=== PATIENT | female | born 1990 | race Two or more races ===

== ENCOUNTER 2017-04-02 09:04 | Emergency (ER) | payer OTHER ==
[2017-04-02 09:14] VITALS: BP 123/63; PULSE 79; TEMP 98.1; BMI 24.4
--- NOTE | 2017-04-02 10:18 | PDOC ---
History of Present Illness - General Chief Complaint: Injury Stated Complaint: INJURY/ANKLE PAIN Time Seen by Provider: 04/02/17 09:48 History Source: Patient, Family Exam Limitations: No Limitations - History of Present Illness Initial Comments: 04/02/17 10:15 Tripped and fell hyperflexing right foot last night. States elevated and use ice packs, but had continued pain. Primarily midfoot, no other injury. Patient is 5 months Occurred: reports: yesterday Pain Location: reports: lower extremity (right foot) Method of Injury: Yes: fall Loss of Consciousness: no loss of consciousness Associated Symptoms (Fall): denies symptoms Past History - Travel Traveled outside of the country in the last 30 days: No Close contact w/someone who was outside of country & ill: No - Past Medical History Allergies/Adverse Reactions: Allergies Allergy/AdvReac Type Severity Reaction Status Date / Time No Known Allergies Allergy Verified 04/02/17 09:14 Home Medications: Ambulatory Orders Vit/Iron Fumarate/FA [ Tablet] 1 each PO DAILY 04/18/15 Asthma: No Cancer: No Cardiac Disorders: No COPD: No Diabetes: No HTN: No Seizures: No Thyroid Disease: No - Suicide/Smoking/Psychosocial Hx Smoking History: Never smoked Have you smoked in the past 12 months: No Information on smoking cessation initiated: No Hx Alcohol Use: No Drug/Substance Use Hx: No Substance Use Type: None Hx Substance Use Treatment: No Review of Systems - Review of Systems Able to Perform ROS?: Yes Is the patient limited [place] Islander proficient: Yes Constitutional: Yes: See HPI. No: Symptoms Reported HEENTM: No: Symptoms Reported Musculoskeletal: Yes: Symptoms Reported, See HPI, Joint Pain, Joint Swelling ( primarily lateral aspect of right dorsum of foot,) *Physical Exam - Vital Signs Last Vital Signs Temp Pulse Resp BP Pulse Ox 98.1 F 79 18 123/63 99 04/02/17 09:10 04/02/17 09:10 04/02/17 09:10 04/02/17 09:10 04/02/17 09:10 - Physical Exam General Appearance: Yes: Nourished, Appropriately Dressed, Apparent Distress, Mild Distress HEENT: positive: EARL, Normal ENT Inspection, TMs Normal, Pharynx Normal Neck: positive: Supple. negative: Lymphadenopathy (R), Lymphadenopathy (L) Respiratory/Chest: positive: Lungs Clear Extremity: positive: Normal Capillary Refill, Tender (has no true Point tenderness to lateral or medial malleolus, no navicular pain, negative squeeze test. Has some mild tenderness to the dorsum of right midfoot at fifth metatarsal however has minimal deformity. Full range of motion at toes and neurovascular intact.) Integumentary: positive: Normal Color, Swelling. 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 Is 5 months therefore will follow-up *DC/Admit/Observation/Transfer Diagnosis at time of Disposition: Right ankle sprain Qualifiers: Encounter type: initial encounter Involved ligament of ankle: unspecified ligament Qualified Code(s): S93.401A - Sprain of unspecified ligament of right ankle, initial encounter - Discharge Dispostion Disposition: HOME Condition at time of disposition: Stable Admit: No - Referrals Referrals: Claude Freed MD [Staff Physician] - - Patient Instructions Printed Discharge Instructions: DI for Ankle Sprain Additional Instructions: Rest, ice to area on and off for 15 minutes 4-6 times a day Avoid heavy lifting or exercise until pain and swelling is resolved or until further directed Keep area highly elevated to reduce swelling Use splints/Ger wrap as directed Followup with orthopedist in one to 2 days if not improving, if significantly improved may wait one week for followup with orthopedist May use Tylenol-2- 325mg tabs every 6 hours as needed for pain - Post Discharge Activity Forms/Work/School Notes: Parent(s) Back to Work Note, Back to Work
== END 2017-04-02 10:24 | disposition home or self-care (01) ==
LOC: JERFT 09:04
DX: O99.89 Other specified diseases and conditions complicating pregnancy, childbirth and the puerperium (principal); S93.401A Sprain of unspecified ligament of right ankle, initial encounter; W18.39XA Other fall on same level, initial encounter; Y93.89 Activity, other specified; Y92.89 Other specified places as the place of occurrence of the external cause; Z3A.20 20 weeks gestation of pregnancy
CPT/HCPCS: 99281-25

== ENCOUNTER 2017-07-24 15:00 | Emergency (ER) | payer OTHER ==
--- NOTE | 2017-07-24 15:04 | PDOC ---
Rapid Medical Evaluation Time Seen by Provider: 07/24/17 15:02 Medical Evaluation: Allergies Allergy/AdvReac Type Severity Reaction Status Date / Time No Known Allergies Allergy Verified 04/02/17 09:14 07/24/17 15:02 I have performed a brief in-person evaluation of this patient. The patient presents with a chief complaint of: 36 weeks , twisted L ankle, denies abd pain/cramping Pertinent physical exam findings: well appearing I have ordered the following: left ankle/foot x-ray The patient will proceed to the ED for further evaluation. Discharge Disposition - Diagnosis Left ankle pain - Referrals - Patient Instructions - Post Discharge Activity
[2017-07-24 15:06] VITALS: BMI 25.4
--- NOTE | 2017-07-24 15:30 | PDOC ---
History of Present Illness - General Chief Complaint: Injury Stated Complaint: FALL (36 WEEKS ),ANKLE PAIN Time Seen by Provider: 07/24/17 15:02 History Source: Patient Exam Limitations: No Limitations - History of Present Illness Initial Comments: 07/24/17 15:28 CHIEF COMPLAINT:Left ankle injury HISTORY OF PRESENT ILLNESS: Patient is a 27-year-old female currently 36 weeks , reports today was walking down the stairs and has been having episodes of dizziness, she twisted her left ankle while walking down the stairs denies hitting her belly. States she felt her buttock. Pain only now to left lateral ankle with edema. No bruising. No deformity. Patient was seen after the incident at her [facility] is aware of her spells of dizziness, center to the emergency department to evaluate ankle and requested for patient to be sent to labor and delivery for evaluation after treatment. Patient is ambulatory with pain to lateral ankle. Does have movement, no vaginal bleeding or discharge, no abdominal trauma.. Occurred: reports: just prior to arrival Severity: Yes: moderate Lower Extremity Pain Location: right: ankle Method of Injury: Yes: twisted Lower Ext. Injury Location - Specific Injury Location Ankle: right pain, right swelling Extremity Pain Location - Extremity Pain Location Extremity Pain Locations: right: ankle Past History - Past Medical History Allergies/Adverse Reactions: Allergies Allergy/AdvReac Type Severity Reaction Status Date / Time No Known Allergies Allergy Verified 07/24/17 15:06 Home Medications: Ambulatory Orders Vit/Iron Fum/Folic AC [ Tablet] 1 each PO DAILY 04/18/15 Asthma: No Cancer: No Cardiac Disorders: No COPD: No Diabetes: No HTN: No Seizures: No Thyroid Disease: No - Immunization History Immunization Up to Date: No - Suicide/Smoking/Psychosocial Hx Smoking History: Never smoked Have you smoked in the past 12 months: No Information on smoking cessation initiated: No Hx Alcohol Use: No Drug/Substance Use Hx: No Substance Use Type: None Hx Substance Use Treatment: No Review of Systems - Review of Systems Constitutional: No: Symptoms Reported HEENTM: No: Symptoms Reported Respiratory: No: Symptoms reported Cardiac (ROS): No: Symptoms Reported ABD/GI: No: Symptoms Reported : No: Symptoms Reported Musculoskeletal: Yes: Joint Pain, Joint Swelling. No: Muscle Pain, Muscle Weakness, Neck Pain, Joint Stiffness Integumentary: No: Symptoms Reported, Bruising, Erythema Neurological: No: Paresthesia, Tingling, Tremors Hematologic/Lymphatic: No: Symptoms Reported All Other Systems: Reviewed and Negative *Physical Exam - Vital Signs Last Vital Signs Temp Pulse Resp BP Pulse Ox 98.1 F 79 19 116/66 100 07/24/17 15:03 07/24/17 15:03 07/24/17 15:03 07/24/17 15:03 07/24/17 15:03 - Physical Exam General Appearance: Yes: Appropriately Dressed. No: Apparent Distress Extremity: positive: Normal Capillary Refill, Normal Inspection, Swelling. negative: Normal Range of Motion (left ankle related to pain. ), Erythema, Inflammation Integumentary: positive: Normal Color, Dry, Swelling (left lateral ankle). negative: Erythema, Ecchymosis, Bruising Neurologic: positive: Alert, Normal Mood/Affect, Normal Response, Motor Strength 5/5 Medical Decision Making - Medical Decision Making 07/25/17 11:46 A/P: Patient with injury to left lateral ankle, patient effort x-ray however she is 36 weeks , made aware of radiation exposure and complications. She verbalized understanding and has requested to double led cover her belly. She was covered with let appropriately, x-ray demonstrates no acute fracture dislocation Ger wrap and Aircast placed on for stability. Crutches given for steady ambulation. After being cleared from emergency department patient sent to labor and delivery for clearance. Patient transferred via wheelchair, stable for transfer. 07/25/17 11:47 *DC/Admit/Observation/Transfer Diagnosis at time of Disposition: Left ankle pain Qualifiers: Chronicity: acute Qualified Code(s): M25.572 - Pain in left ankle and joints of left foot - Discharge Dispostion Disposition: HOME Condition at time of disposition: Stable Admit: No - Referrals Referrals: Fatimah Romero MD [Staff Physician] - - Patient Instructions Additional Instructions: Ice and elevate when at rest, Tylenol for pain, if pain persists in 1 week follow-up with orthopedics go immediately to labor and delivery upon discharge today. DISCHARGE TO HOME. FOLLOW-UP IN [facility] NEXT WEEK, CALL TOMORROW TO MAKE APPOINTMENT. RETURN TO THE HOSPITAL OF ANY OF THE FOLLOWING OCCUR: VAGINAL BLEEDING, YOUR WATER BREAKS, YOU HAVE REGULAR CONTRACTIONS OR YOU DO NOT FEEL YOUR BABY MOVE. MAKE SURE TO STAY HYDRATED WITH 8-10 GLASSES OF WATER PER DAY. CALL THE HOSPITAL WITH ANY QUESTIONS: [phone]. - Post Discharge Activity
[2017-07-24 17:36] VITALS: BP 129/71; PULSE 82; TEMP 97.9
== END 2017-07-24 18:04 | disposition home or self-care (01) ==
LOC: JERFT 15:00
DX: O99.89 Other specified diseases and conditions complicating pregnancy, childbirth and the puerperium (principal); M25.572 Pain in left ankle and joints of left foot; W10.8XXA Fall (on) (from) other stairs and steps, initial encounter; Y93.89 Activity, other specified; Y92.89 Other specified places as the place of occurrence of the external cause; Z3A.36 36 weeks gestation of pregnancy
CPT/HCPCS: 73610-TC-LT-FY; 73630-TC-LT; 99281-25

== ENCOUNTER 2017-08-14 07:10 | Inpatient (IN) | payer OTHER ==
[2017-08-14] MEDS ORDERED: ELECTROLYTE-148 SOLN 1,000 ML IV ONE (07:50)
[2017-08-14] MEDS ORDERED: CITRIC ACID/SODIUM CITRATE 30 ML UNIT-DOSE CUP PO ONE (08:03)
[2017-08-14 08:08] VITALS: BMI 26.3
[2017-08-14] MEDS ORDERED: ELECTROLYTE-148 SOLN 1,000 ML IV SCH (08:15)
--- NOTE | 2017-08-14 11:28 | HP ---
Past Medical History - Primary Care Physician PCP:: Jostin Harrison - Admission Chief Complaint: 39 weeks, previous c/s, for repeat c/s History of Present Illness: 27 yo g 2 p1001 edc by sono 08/19/17 with hx of previous c/s, requesting repeat c/ s, discussed , cx clp, vx -3, fhr cat 1 History Source: Patient Limitations to Obtaining History: No Limitations - Past Medical History ...: 2 ...Para: 1 ...Term: 1 ... Weeks Gestation by Dates: 39.2 ...EDC by Sono: 08/19/17 - Past Surgical History Past Surgical History: Yes: Hx Myomectomy: No Hx Transabdominal Cerclage: No - Smoking History Smoking history: Never smoked Have you smoked in the past 12 months: No - Alcohol/Substance Use Hx Alcohol Use: No - Social History Usual Living Arrangement: Yes: With Spouse History of Recent Travel: No Home Medications - Allergies Allergies/Adverse Reactions: Allergies Allergy/AdvReac Type Severity Reaction Status Date / Time No Known Allergies Allergy Verified 08/14/17 07:58 - Home Medications Home Medications: Ambulatory Orders Vit/Iron Fum/Folic AC [ Tablet] 1 each PO DAILY 04/18/15 Review of Systems - Review of Systems Constitutional: reports: No Symptoms Eyes: reports: No Symptoms HENT: reports: No Symptoms Neck: reports: No Symptoms Cardiovascular: reports: No Symptoms Respiratory: reports: No Symptoms Gastrointestinal: reports: No Symptoms Genitourinary: reports: No Symptoms Breasts: reports: No Symptoms Reported Musculoskeletal: reports: No Symptoms Integumentary: reports: No Symptoms Neurological: reports: No Symptoms Endocrine: reports: No Symptoms Hematology/Lymphatic: reports: No Symptoms Physical Exam - Maternity Vital Signs: Vital Signs Temperature 98.4 F 08/14/17 07:30 Pulse Rate 80 08/14/17 07:30 Respiratory Rate 18 08/14/17 07:30 Blood Pressure 129/75 08/14/17 07:30 O2 Sat by Pulse Oximetry (%) - Abdominal Exam/OB Fundal Height: 40 Number of Fetuses: Single Presentation: Vertex Regularity: Irritability Intensity: Unaware Heart Rate Location: [facility] Category: I Accelerations: Uniform Decelerations: None - Vaginal Exam/OB Vaginal Bleediing: No Speculum Exam: No Dilatation (cm): closed Effacement (%): 0 Amniotic Membrane Status: Intact Presentation: Vertex/Position Station: -3 - Physical Exam Musculoskeletal: Yes: WNL Edema: Yes Edema: LLE: Trace, RLE: Trace Deep Tendon Reflex Grade: Normal +2 Psychiatric: Yes: WNL Hemorrhage Risk Assessment - Risk Factors Medium Risk Factors: Yes: Prior , uterine surgery,or multiple laparotomies Risk Score: 1 Risk Level: Medium Risk Problem List - Problems (1) with 39 completed weeks gestation Code(s): Z3A.39 - 39 WEEKS GESTATION OF (2) Previous section complicating Code(s): O34.219 - MATERNAL CARE FOR UNSP TYPE SCAR FROM PREVIOUS DEL Assessment/Plan repeat c/s, rba discussed
[2017-08-14] MEDS ORDERED: morphine SULFATE/Preservative Free 0.5 MG/ML (1cc Syringe) ONE (11:50)
[2017-08-14] MEDS ORDERED: BUPIVACAINE 0.75% IN DEXTROSE/PF 2ML AMPULE NR ONE (11:50)
[2017-08-14] MEDS ORDERED: morphine SULFATE/Preservative Free 0.5 MG/ML (1cc Syringe) SPIN ONE (12:02)
[2017-08-14] MEDS ORDERED: ceFAZolin SODIUM 1 GM VIAL ONE (12:04)
[2017-08-14] MEDS ORDERED: ePHEDrine SULFATE 50 MG/1 ML AMPULE ONE (12:06)
[2017-08-14] MEDS ORDERED: OXYTOCIN 10 UNITS/ML VIAL ONE ×2 (12:12→12:13)
[2017-08-14] MEDS ORDERED: ONDANSETRON 4 MG/2 ML VIAL IVPUSH PRN (12:18)
[2017-08-14] MEDS ORDERED: WITCH HAZEL 50% (TUCKS) 40 PAD/JAR PAD TP PRN (12:40)
[2017-08-14] MEDS ORDERED: diphenhydrAMINE HCL 25 MG CAPSULE (FP) PO PRN (12:40)
[2017-08-14] MEDS ORDERED: METHYLERGONOVINE MALEATE 0.2 MG/1 ML AMP IM PRN (12:40)
[2017-08-14] MEDS ORDERED: BENZOCAINE 28 GM HEMORRHOIDAL OINTMENT PR PRN (12:40)
[2017-08-14] MEDS ORDERED: IBUPROFEN 600 MG TABLET (FP) PO PRN (12:40)
[2017-08-14] MEDS ORDERED: IBUPROFEN 800 MG/8 ML IJ IVPB PRN (12:40)
[2017-08-14] MEDS ORDERED: BENZOCAINE 20% 57 GM BOTTLE TP PRN (12:40)
[2017-08-14] MEDS ORDERED: OXYTOCIN 20 UNITS in 0.9% NS 20 UNIT/1,000 ML INFUS.BAG IV SCH (12:45)
[2017-08-14] MEDS ORDERED: DEXTROSE 5%-LACTATED RINGERS 1,000 ML IV SCH (12:45)
--- NOTE | 2017-08-14 13:43 | OP ---
DATE OF OPERATION: 08/14/2017 PREOPERATIVE DIAGNOSIS: 39 weeks, previous section, request repeat section. POSTOPERATIVE DIAGNOSIS: 39 weeks, previous section, request repeat section. PROCEDURE: Repeat low segment transverse section. SURGEON: Jostin Harrison MD RN REHABILITATION: BHARGAV Nance ANESTHESIA: Spinal. ANESTHESIOLOGIST: Dr. Andres Jordan ESTIMATED BLOOD LOSS: 500 mL. FINDINGS: A live baby boy, Apgars 9/9, ROT position. DESCRIPTION OF PROCEDURE: The patient was taken to the operating room under adequate spinal anesthesia. Abdomen and perineum were prepped and draped. Pfannenstiel abdominal skin incision was made over the previous incision. Abdominal wall was cut layer by layer until the peritoneum was exposed and incised. Upon entering the abdominal cavity, lower uterine segment was identified and uterovesical fold of peritoneum established. Bladder was pushed down. Then with the lower blade of the Jackie retractor in the pelvis, a low transverse uterine incision was made. Incision extended laterally. Amniotic sac was entered. Clear fluid. Head delivered from right occiput posterior position. Cord around the neck x1 reduced. Nasopharynx was suctioned, and live baby boy was delivered without any difficulty. Placenta was delivered manually. Uterine cavity was cleaned of all remaining tissue. Uterine incision was closed in 2 layers, the first layer with 0 Biosyn continuous suture, the second layer with 0 Biosyn imbricating the first layer. Bladder flap was closed with 0 Biosyn continuous suture. Both tubes and ovaries were checked and normal. No active bleeding was seen. All of the lap pad, sponge, and instrument counts were correct. Peritoneum was closed with 0 Biosyn continuous suture. Muscles were brought together with interrupted sutures of 0 Biosyn. Fascia was closed with 0 Biosyn continuous suture, subcutaneous fat interrupted suture of 0 Biosyn, and the skin was closed with reese. The patient tolerated the procedure well and left the OR in good condition. Bc [id number]
[2017-08-14] MEDS: CEFAZOLIN 1 GM/D5W 1 GM/50 ML BAG IVPB SCH (18:01)
[2017-08-15] MEDS: CEFAZOLIN 1 GM/D5W 1 GM/50 ML BAG IVPB SCH (02:00)
[2017-08-15 08:21] LABS: BASO % 0.2 % (0-2.0); EOS % 0.3 % (0-4.5); HEMATOCRIT 28.8 % (32.4-45.2); HEMOGLOBIN 9.5 GM/dL (10.7-15.3); LYMPH % 12.8 % (8-40); MCH 28.3 pg (25.7-33.7); MEAN CELL VOLUME 85.9 fl (80-96); MEAN PLT VOLUME 8.4 fl (7.5-11.1); MONO % 8.2 % (3.8-10.2); NEUT % 78.5 % (42.8-82.8); PLATELET COUNT 191 K/MM3 (134-434); RBC 3.36 M/mm3 (3.60-5.2); RDW 14.8 % (11.6-15.6); WHITE BLOOD COUNT 7.7 K/mm3 (4.0-10.0)
[2017-08-15] MEDS: oxyCODONE HCL 5 MG TABLET PO PRN ×3 (09:28→22:01)
[2017-08-15] MEDS: ACETAMINOPHEN 325 MG TABLET (FP) PO PRN (09:30)
[2017-08-15] MEDS: SIMETHICONE 80 MG TAB.CHEW (FP) PO PRN ×3 (09:31→22:01)
[2017-08-15] MEDS: ENOXAPARIN NA (PORCINE) 40 MG/0.4 ML DISP.SYRIN SQ SCH (09:31)
--- NOTE | 2017-08-15 10:58 | PN ---
Post Progress Note - Subjective Subjective: c/o pain scale 5-6. voided after paul is taken out Post Day: 1 Type of Delivery: Repeat C/S Vital Signs: Vital Signs Temperature 98.8 F 08/15/17 07:10 Pulse Rate 73 08/15/17 07:10 Respiratory Rate 20 08/15/17 07:10 Blood Pressure 103/61 08/15/17 07:10 O2 Sat by Pulse Oximetry (%) 100 08/14/17 13:35 Breast Exam: Yes: Soft, Other (BF). No: Engorged Uterus: Yes: Fundus Firm, Fundus below umbilicus, Non-tender Incision: Yes: Dressing dry and intact. No: Redness, Oozing Abdomen/GI: Yes: Abdomen soft (bs active), Tender, Tolerating PO (fluids). No: Abdominal Distention, Passing flatus Lochia: Yes: Rubra Lochia, amount: Moderate Extremities: Yes: Calves non-tender Perineum: Yes: Intact Activity: Ambulating, Other (oob in chair) - Labs Labs: CBC WBC 7.7 K/mm3 (4.0-10.0) D 08/15/17 07:30 RBC 3.36 M/mm3 (3.60-5.2) L 08/15/17 07:30 Hgb 9.5 GM/dL (10.7-15.3) L D 08/15/17 07:30 Hct 28.8 % (32.4-45.2) L 08/15/17 07:30 MCV 85.9 fl (80-96) 08/15/17 07:30 MCH 28.3 pg (25.7-33.7) 08/15/17 07:30 MCHC 33.0 g/dl (32.0-36.0) 08/15/17 07:30 RDW 14.8 % (11.6-15.6) 08/15/17 07:30 Plt Count 191 K/MM3 (134-434) 08/15/17 07:30 MPV 8.4 fl (7.5-11.1) 08/15/17 07:30 Neutrophils % 78.5 % (42.8-82.8) 08/15/17 07:30 Lymphocytes % 12.8 % (8-40) D 08/15/17 07:30 Monocytes % 8.2 % (3.8-10.2) 08/15/17 07:30 Eosinophils % 0.3 % (0-4.5) 08/15/17 07:30 Basophils % 0.2 % (0-2.0) 08/15/17 07:30 Other Findings, Remarks: rs cta i/o adequate Assessment/Plan stable. plan : ct po care encourage ambulation, po fluids , deep breathing
[2017-08-15] MEDS ORDERED: BISACODYL 10 MG SUPP.RECT RC PRN (12:40)
--- NOTE | 2017-08-15 13:56 | PN ---
Progress Note, Physician Chief Complaint: POD #1 s/p c/s - Current Medication List Current Medications: Active Medications Acetaminophen (Tylenol -) 650 mg PO Q4H PRN PRN Reason: PAIN Last Admin: 08/15/17 09:30 Dose: 650 mg Benzocaine (Americaine 20% Davis -) 1 spray TP PRN PRN PRN Reason: Pain - Topical Benzocaine (Americaine Ointment -) 1 applic OK PRN PRN PRN Reason: Pain - Topical Bisacodyl (Dulcolax Suppository -) 10 mg RC PRN PRN PRN Reason: CONSTIPATION Diphenhydramine HCl (Benadryl Injection -) 25 mg IVPUSH Q4H PRN PRN Reason: Pruritis Last Admin: 08/14/17 13:50 Dose: 25 mg Diphenhydramine HCl (Benadryl -) 25 mg PO Q8H PRN PRN Reason: FOR ITCHING Enoxaparin Sodium (Lovenox -) 40 mg SQ DAILY JOSE RAUL Last Admin: 08/15/17 09:31 Dose: 40 mg Parenteral Electrolytes (Plasma-Lyte 148 -) 1,000 mls @ 125 mls/hr IV ASDIR JOSE RAUL Last Admin: 08/14/17 08:30 Dose: 125 mls/hr Cefazolin Sodium (Ancef 1 Gm Premixed Ivpb -) 1 gm in 50 mls @ 100 mls/hr IVPB Q8H-IV JOSE RAUL Stop: 08/15/17 02:29 Last Admin: 08/15/17 02:00 Dose: 100 mls/hr Dextrose/Lactated Ringer's (D5-Lr -) 1,000 mls @ 125 mls/hr IV ASDIR JOSE RAUL Oxytocin/Sodium Chloride (Normal Saline+20 Units Oxytocin -) 20 unit in 1,000 mls @ 125 mls/hr IV ASDIR JOSE RAUL Ibuprofen (Motrin -) 600 mg PO Q4H PRN PRN Reason: PAIN LEVEL 1-5 Ibuprofen (Caldolor Injection -) 800 mg IVPB Q6H PRN PRN Reason: PAIN > 5 if PO not effective. Last Admin: 08/15/17 00:12 Dose: 800 mg Methylergonovine Maleate (Methergine Injection -) 0.2 mg IM Q4H PRN PRN Reason: EXCESSIVE BLEEDING Ondansetron HCl (Zofran Injection) 4 mg IVPUSH Q4H PRN PRN Reason: NAUSEA Last Admin: 08/14/17 17:15 Dose: 4 mg Oxycodone HCl (Roxicodone -) 5 mg PO Q4H PRN PRN Reason: PAIN LEVEL 4 - 6 Last Admin: 08/15/17 09:28 Dose: 5 mg Oxycodone HCl (Roxicodone -) 10 mg PO Q4H PRN PRN Reason: PAIN LEVEL 7 - 10 Senna/Docusate Sodium (Pericolace -) 2 tablet PO HS PRN PRN Reason: CONSTIPATION Simethicone (Mylicon -) 80 mg PO Q4H PRN PRN Reason: GAS Last Admin: 08/15/17 09:31 Dose: 80 mg Witch Elsa/Glycerin (Tucks Pads -) 1 pad TP PRN PRN PRN Reason: Pain - Topical - Objective Vital Signs: Vital Signs Temperature 98.8 F 08/15/17 07:10 Pulse Rate 73 08/15/17 07:10 Respiratory Rate 20 08/15/17 07:10 Blood Pressure 103/61 08/15/17 07:10 O2 Sat by Pulse Oximetry (%) 100 08/14/17 13:35 Labs: CBC, BMP 08/15/17 07:30 Assessment/Plan Pt has incisional pain but able to ambulate, do daily activities etc. Encouraged to take PO percocet for better pain control (she was reluctant intially)
[2017-08-15] MEDS: IBUPROFEN 600 MG TABLET (FP) PO PRN ×2 (16:13→22:02)
--- NOTE | 2017-08-16 02:27 | PN ---
Post Progress Note - Subjective Subjective: 27 yo Para 2 status post repeat , seen and evaluated. Doing well. Post Day: 2 Type of Delivery: Repeat C/S Vital Signs: Vital Signs Temperature 98.1 F 08/15/17 21:36 Pulse Rate 76 08/15/17 21:36 Respiratory Rate 18 08/15/17 21:36 Blood Pressure 112/57 08/15/17 21:36 O2 Sat by Pulse Oximetry (%) 100 08/14/17 13:35 Breast Exam: Yes: Soft Uterus: Yes: Fundus Firm Incision: Yes: Dressing dry and intact Abdomen/GI: Yes: Abdomen soft, Tolerating PO Lochia: Yes: Rubra Lochia, amount: Small Extremities: Yes: Calves non-tender Activity: Ambulating - Labs Labs: CBC WBC 7.7 K/mm3 (4.0-10.0) D 08/15/17 07:30 RBC 3.36 M/mm3 (3.60-5.2) L 08/15/17 07:30 Hgb 9.5 GM/dL (10.7-15.3) L D 08/15/17 07:30 Hct 28.8 % (32.4-45.2) L 08/15/17 07:30 MCV 85.9 fl (80-96) 08/15/17 07:30 MCH 28.3 pg (25.7-33.7) 08/15/17 07:30 MCHC 33.0 g/dl (32.0-36.0) 08/15/17 07:30 RDW 14.8 % (11.6-15.6) 08/15/17 07:30 Plt Count 191 K/MM3 (134-434) 08/15/17 07:30 MPV 8.4 fl (7.5-11.1) 08/15/17 07:30 Neutrophils % 78.5 % (42.8-82.8) 08/15/17 07:30 Lymphocytes % 12.8 % (8-40) D 08/15/17 07:30 Monocytes % 8.2 % (3.8-10.2) 08/15/17 07:30 Eosinophils % 0.3 % (0-4.5) 08/15/17 07:30 Basophils % 0.2 % (0-2.0) 08/15/17 07:30 Problem List - Problems (1) Status post repeat low transverse section Code(s): Z98.891 - HISTORY OF UTERINE SCAR FROM PREVIOUS SURGERY Assessment/Plan Status post repeat Low transverse Ambulation Analgesia as needed Continue routine post op care
[2017-08-16] MEDS: ENOXAPARIN NA (PORCINE) 40 MG/0.4 ML DISP.SYRIN SQ SCH (09:04)
[2017-08-16] MEDS: oxyCODONE HCL 5 MG TABLET PO PRN ×2 (09:05→20:49)
[2017-08-16] MEDS: SIMETHICONE 80 MG TAB.CHEW (FP) PO PRN ×2 (09:05→18:31)
[2017-08-16] MEDS: IBUPROFEN 600 MG TABLET (FP) PO PRN ×2 (09:06→18:31)
[2017-08-16] MEDS: ACETAMINOPHEN 325 MG TABLET (FP) PO PRN ×2 (09:07→18:30)
[2017-08-16] MEDS: SENNOSIDES/DOCUSATE COMBO (SENNA PLUS) TABLET (UD) PO PRN (20:49)
[2017-08-17] MEDS: IBUPROFEN 600 MG TABLET (FP) PO PRN ×3 (02:27→22:32)
[2017-08-17] MEDS: oxyCODONE HCL 5 MG TABLET PO PRN (02:27)
[2017-08-17] MEDS: SIMETHICONE 80 MG TAB.CHEW (FP) PO PRN ×3 (02:27→22:31)
[2017-08-17 07:47] LABS: BASO % 0.6 % (0-2.0); EOS % 2.7 % (0-4.5); HEMATOCRIT 27.6 % (32.4-45.2); HEMOGLOBIN 9.1 GM/dL (10.7-15.3); LYMPH % 31.1 % (8-40); MCH 28.3 pg (25.7-33.7); MCHC 32.9 g/dl (32.0-36.0); MEAN CELL VOLUME 85.9 fl (80-96); MEAN PLT VOLUME 8.6 fl (7.5-11.1); MONO % 10.5 % (3.8-10.2); NEUT % 55.1 % (42.8-82.8); PLATELET COUNT 228 K/MM3 (134-434); RBC 3.21 M/mm3 (3.60-5.2); RDW 15.2 % (11.6-15.6); WHITE BLOOD COUNT 6.4 K/mm3 (4.0-10.0)
[2017-08-17] MEDS: ENOXAPARIN NA (PORCINE) 40 MG/0.4 ML DISP.SYRIN SQ SCH (09:18)
[2017-08-17] MEDS: ACETAMINOPHEN 325 MG TABLET (FP) PO PRN ×2 (16:56→22:31)
--- NOTE | 2017-08-17 17:05 | PATH ---
Surgical Pathology Report Patient Name: MASOOD RUSS Med. Rec. #: [id number] /Age/Gender: 1990 (Age: 27) / F Account: [id number] Location: [facility] OBS/SAMPLE MAKER HAND Taken: 08/14/2017 Received: 08/15/2017 Reported: 08/17/2017 Physicians: Jostin Harrison M.D. Specimen(s) Received PLACENTA Clinical History , 39.2 weeks Final Diagnosis PLACENTA: MATURE THIRD TRIMESTER PLACENTA. THREE-VESSEL CORD. MEMBRANES, NO DIAGNOSTIC ABNORMALITIES. Electronically Signed Ladonna Zavala M.D. Gross Description The specimen is received fresh labeled placenta and is a 542 gram, 18.0 x 16.0 x 2.7 cm. placenta with attached membranes and umbilical cord. The attached membranes are moreira, translucent with focal opacities and insert marginally. The umbilical cord measures 52 cm. in length and averages 1.0 cm. in diameter. The cord inserts eccentrically, 5 cm. to the nearest margin. No true knots or strictures are identified. Cut surface of the umbilical cord reveals 3 vessels. The surface is becker-blue with minimal fibrin deposition and appropriate caliber vessels. The maternal surface is red-brown with focal defects. Sectioning reveals red-brown, spongy parenchyma. No lesions are identified. Asset Accountant sections are submitted in three cassettes as follows: 1- membrane rolls and umbilical cord; 2-3- full thickness sections of placenta. /08/16/2017 saudi/08/16/2017
--- NOTE | 2017-08-17 19:45 | PN ---
Post Progress Note - Subjective Subjective: 27 yo Para 2 status post repeat , seen and evaluated. Doing well. Post Day: 3 Type of Delivery: Repeat C/S Vital Signs: Vital Signs Temperature 98.4 F 08/17/17 10:00 Pulse Rate 58 L 08/17/17 10:00 Respiratory Rate 20 08/17/17 10:00 Blood Pressure 126/80 08/17/17 10:00 O2 Sat by Pulse Oximetry (%) 100 08/14/17 13:35 Breast Exam: Yes: Soft Uterus: Yes: Fundus Firm Incision: Yes: Dressing dry and intact Abdomen/GI: Yes: Abdomen soft, Tolerating PO Lochia: Yes: Rubra Lochia, amount: Small Extremities: Yes: Calves non-tender Activity: Ambulating - Labs Labs: CBC WBC 6.4 K/mm3 (4.0-10.0) 08/17/17 07:10 RBC 3.21 M/mm3 (3.60-5.2) L 08/17/17 07:10 Hgb 9.1 GM/dL (10.7-15.3) L 08/17/17 07:10 Hct 27.6 % (32.4-45.2) L 08/17/17 07:10 MCV 85.9 fl (80-96) 08/17/17 07:10 MCH 28.3 pg (25.7-33.7) 08/17/17 07:10 MCHC 32.9 g/dl (32.0-36.0) 08/17/17 07:10 RDW 15.2 % (11.6-15.6) 08/17/17 07:10 Plt Count 228 K/MM3 (134-434) 08/17/17 07:10 MPV 8.6 fl (7.5-11.1) 08/17/17 07:10 Neutrophils % 55.1 % (42.8-82.8) D 08/17/17 07:10 Lymphocytes % 31.1 % (8-40) D 08/17/17 07:10 Monocytes % 10.5 % (3.8-10.2) H 08/17/17 07:10 Eosinophils % 2.7 % (0-4.5) D 08/17/17 07:10 Basophils % 0.6 % (0-2.0) 08/17/17 07:10 Problem List - Problems (1) Status post repeat low transverse section Code(s): Z98.891 - HISTORY OF UTERINE SCAR FROM PREVIOUS SURGERY Assessment/Plan Status post repeat Low transverse Ambulation Analgesia as needed Continue routine post op care
[2017-08-17] MEDS: SENNOSIDES/DOCUSATE COMBO (SENNA PLUS) TABLET (UD) PO PRN (22:31)
--- NOTE | 2017-08-18 01:58 | DS ---
Physical Exam-MANAGER VIDEO Vital Signs: Vital Signs Temperature 98.0 F 08/17/17 22:00 Pulse Rate 60 08/17/17 22:00 Respiratory Rate 20 08/17/17 22:00 Blood Pressure 133/70 08/17/17 22:00 O2 Sat by Pulse Oximetry (%) 100 08/14/17 13:35 Constitutional: Yes: Well Nourished Eyes: Yes: Conjunctiva Clear HENT: Yes: Atraumatic Neck: Yes: Supple Cardiovascular: Yes: Regular Rate and Rhythm Respiratory: Yes: Regular Gastrointestinal: Yes: Normal Bowel Sounds External Genitalia: Yes: Normal Vaginal Exam: Yes: Normal Cervix: Yes: Normal Uterus: Yes: Firm Breast(s): Yes: WNL Musculoskeletal: Yes: WNL Extremities: Yes: WNL Wound/Incision: Yes: Well Approximated Neurological: Yes: Alert, Oriented ...Motor Strength: WNL Psychiatric: Yes: Alert, Oriented Labs: CBC, BMP 08/17/17 07:10 Delivery - Delivery Type of Anesthesia: Spinal Episiotomy/Laceration: None EBL (cc): 500 Delivery, Single - Stages of Labor Date of Delivery: 08/14/17 Time of Delivery: 12:13 Time Placenta Delivered: 12:14 - 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 Present: Yes Name: Kristin Potter Infant Gender: Male Weight: 7 lb 14 oz Position: Right, OT Total Hours ROM (Hrs/Mins): 2mins - 1 Minute Total Score: 9 5 Minutes Total Score: 9 - [place] Feeding Plan Initial Plan: Elected not to breastfeed exclusively throughout hospitalization Discharge Summary Reason For Visit: C/SECTION Current Active Problems with 39 completed weeks gestation (Acute) Previous section complicating (Acute) Status post repeat low transverse section (Acute) Procedures: Principal: Repeat Low Transverse Hospital Course: Routine post op care Condition: Good - Instructions Diet, Activity, Other Instructions: regular diet, follow up [facility] care 1 week call [facility] for appointment. [phone] Disposition: HOME - Home Medications Comprehensive Discharge Medication List: Ambulatory Orders Vit/Iron Fum/Folic AC [ Tablet] 1 each PO DAILY 04/18/15 Ibuprofen [Motrin -] 600 mg PO QID #28 tablet 08/16/17
[2017-08-18] MEDS: IBUPROFEN 600 MG TABLET (FP) PO PRN (05:11)
[2017-08-18] MEDS: SIMETHICONE 80 MG TAB.CHEW (FP) PO PRN (05:11)
[2017-08-18] MEDS: ACETAMINOPHEN 325 MG TABLET (FP) PO PRN (05:12)
[2017-08-18 08:20] VITALS: BP 131/80; PULSE 83; TEMP 97.3
[2017-08-18] MEDS: ENOXAPARIN NA (PORCINE) 40 MG/0.4 ML DISP.SYRIN SQ SCH (09:01)
== END 2017-08-18 11:45 | disposition home or self-care (01) | DRG 540 ==
LOC: JLDR 07:10 → J3W 14:06
PROVIDERS: ADMIT Obstetrics & Gynecology; ATTEND Obstetrics & Gynecology
PROC: 10D00Z1 Extraction of Products of Conception, Low, Open Approach (ICD-10-PCS; principal; 2017-08-14)
DX: O34.211 Maternal care for low transverse scar from previous cesarean delivery (principal); N85.8 Other specified noninflammatory disorders of uterus; Z3A.39 39 weeks gestation of pregnancy; Z37.0 Single live birth
CPT/HCPCS: 36415; 85025; 88307-TC